=== PATIENT | male | born 1955 | race African-American/Black ===

== ENCOUNTER 2016-08-24 14:44 | Outpatient (RCR) | payer MEDICARE, OTHER ==
[~2016-08-24 14:44] MED LIST: AMLODIPINE BESY10 MG ORAL; ASPIRIN81 MG ORAL; CATAPRES-TTS 11 EACH TD; CATAPRES-TTS 31 EACH TD; FUROSEMIDE20 M1 ORAL; HYDRALAZINE HCL10 MG ORAL; LOSARTAN POTASS50 MG ORAL; MINOXIDIL10 MG PO; NOVOLIN N100 UNIT/1 SUBQ; REGLAN10 MG PO; UNOBMED
== END 2016-09-22 | disposition home or self-care (01) ==
LOC: WCC 14:44
DX: L03.115 Cellulitis of right lower limb (principal); E11.621 Type 2 diabetes mellitus with foot ulcer; M25.774 Osteophyte, right foot; Z89.431 Acquired absence of right foot; L97.514 Non-pressure chronic ulcer of other part of right foot with necrosis of bone; E11.42 Type 2 diabetes mellitus with diabetic polyneuropathy; G99.0 Autonomic neuropathy in diseases classified elsewhere; Z89.421 Acquired absence of other right toe(s); I12.0 Hypertensive chronic kidney disease with stage 5 chronic kidney disease or end stage renal disease; E11.22 Type 2 diabetes mellitus with diabetic chronic kidney disease; N18.6 End stage renal disease
CPT/HCPCS: G0463

== ENCOUNTER 2016-09-28 14:30 | Outpatient (RCR) | payer MEDICARE, OTHER | END 2016-10-22 | disposition home or self-care (01) | LOC: WCC 14:30 | DX: L03.115 Cellulitis of right lower limb (principal); E11.621 Type 2 diabetes mellitus with foot ulcer; M25.774 Osteophyte, right foot; Z89.431 Acquired absence of right foot; L97.514 Non-pressure chronic ulcer of other part of right foot with necrosis of bone; E11.42 Type 2 diabetes mellitus with diabetic polyneuropathy; G99.0 Autonomic neuropathy in diseases classified elsewhere; R11.2 Nausea with vomiting, unspecified; I12.0 Hypertensive chronic kidney disease with stage 5 chronic kidney disease or end stage renal disease; E11.22 Type 2 diabetes mellitus with diabetic chronic kidney disease; N18.6 End stage renal disease | CPT/HCPCS: G0463 ==

== ENCOUNTER 2016-11-16 15:00 | Outpatient (RCR) | payer MEDICARE, OTHER | END 2016-11-22 | disposition home or self-care (01) | LOC: WCC 15:00 | DX: L97.514 Non-pressure chronic ulcer of other part of right foot with necrosis of bone (principal); E11.42 Type 2 diabetes mellitus with diabetic polyneuropathy; G99.0 Autonomic neuropathy in diseases classified elsewhere; Z89.431 Acquired absence of right foot; M25.774 Osteophyte, right foot; E11.621 Type 2 diabetes mellitus with foot ulcer; I12.0 Hypertensive chronic kidney disease with stage 5 chronic kidney disease or end stage renal disease; E11.22 Type 2 diabetes mellitus with diabetic chronic kidney disease; N18.6 End stage renal disease; E11.40 Type 2 diabetes mellitus with diabetic neuropathy, unspecified; Z87.891 Personal history of nicotine dependence; Z89.421 Acquired absence of other right toe(s) | CPT/HCPCS: G0463 ==

== ENCOUNTER 2016-11-23 15:00 | Outpatient (RCR) | payer MEDICARE, OTHER | END 2016-12-23 | disposition home or self-care (01) | LOC: WCC 15:00 | DX: L97.514 Non-pressure chronic ulcer of other part of right foot with necrosis of bone (principal); E11.621 Type 2 diabetes mellitus with foot ulcer; Z89.431 Acquired absence of right foot; E11.42 Type 2 diabetes mellitus with diabetic polyneuropathy; G99.0 Autonomic neuropathy in diseases classified elsewhere; I12.0 Hypertensive chronic kidney disease with stage 5 chronic kidney disease or end stage renal disease; E11.22 Type 2 diabetes mellitus with diabetic chronic kidney disease; N18.6 End stage renal disease; E11.40 Type 2 diabetes mellitus with diabetic neuropathy, unspecified | CPT/HCPCS: G0463 ×2 ==

== ENCOUNTER 2016-12-07 16:15 | Outpatient (CLI) | payer MEDICARE, OTHER ==
--- NOTE | 2016-12-07 17:31 | Diagnostic Imaging Report ---
Indication: PAIN Technique: 3 views left foot Comparison: none Findings: No acute fractures. No dislocations. The joint spaces are preserved. There is hammertoe deformity of the second through fifth digits. This somewhat limits evaluation Impression: No acute bony trauma
== END 2016-12-07 18:15 | disposition home or self-care (01) ==
LOC: WCC 16:15
DX: M25.572 Pain in left ankle and joints of left foot (principal); M20.42 Other hammer toe(s) (acquired), left foot

== ENCOUNTER 2018-01-31 14:27 | Outpatient (RCR) | payer MEDICARE, OTHER | END 2018-02-22 | disposition home or self-care (01) | LOC: WCC 14:27 | DX: L97.512 Non-pressure chronic ulcer of other part of right foot with fat layer exposed (principal); E11.42 Type 2 diabetes mellitus with diabetic polyneuropathy; E11.621 Type 2 diabetes mellitus with foot ulcer; G99.0 Autonomic neuropathy in diseases classified elsewhere; Z89.421 Acquired absence of other right toe(s); I12.0 Hypertensive chronic kidney disease with stage 5 chronic kidney disease or end stage renal disease; E11.22 Type 2 diabetes mellitus with diabetic chronic kidney disease; N18.6 End stage renal disease; Z87.891 Personal history of nicotine dependence | CPT/HCPCS: 11042 ==

== ENCOUNTER 2018-05-02 14:27 | Outpatient (RCR) | payer MEDICARE, OTHER | END 2018-05-25 | disposition home or self-care (01) | LOC: WCC 14:27 | DX: L97.513 Non-pressure chronic ulcer of other part of right foot with necrosis of muscle (principal); L97.512 Non-pressure chronic ulcer of other part of right foot with fat layer exposed; G99.0 Autonomic neuropathy in diseases classified elsewhere; N18.6 End stage renal disease; Z89.421 Acquired absence of other right toe(s); E11.621 Type 2 diabetes mellitus with foot ulcer; E11.49 Type 2 diabetes mellitus with other diabetic neurological complication; I12.0 Hypertensive chronic kidney disease with stage 5 chronic kidney disease or end stage renal disease; E11.22 Type 2 diabetes mellitus with diabetic chronic kidney disease; Z87.891 Personal history of nicotine dependence; Z89.431 Acquired absence of right foot | CPT/HCPCS: 11042; 11043; 15275; 73721; 87070; 87205; Q4132; Q4133 ==

== ENCOUNTER 2018-05-02 15:41 | Outpatient (CLI) | payer MEDICARE, OTHER ==
--- NOTE | 2018-05-03 10:27 | Diagnostic Imaging Report ---
Indication: Right foot wounds, laterally and on the sole, history of amputation Technique: Sagittal, axial, and coronal T1 fast spin echo and FSE STIR images obtained of the hindfoot Comparison: none Findings: Marker alvares an ulcer on the plantar surface of the midfoot and a second marker on the lateral aspect of the midfoot. Patient is status post transmetatarsal amputation. The anatomy of the metatarsal stumps is difficult to assess. There is equivocally Increased STIR and decreased T1 signal within the fifth metatarsal stump. There is equivocally increased STIR and decreased T1 signal within the third and/or fourth metatarsal stumps. There is increased STIR signal decreased T1 signal and suggestion of slight cortical loss involving the inferolateral aspect of the cuboid. This is best appreciated on the coronal images. This is adjacent to a wound marker as well as some soft tissue edema. No other marrow signal abnormality demonstrated. There is a minimal amount of edema in the plantar surface of the distal foot adjacent to the marker. No focal drainable soft tissue collections are demonstrated. Impression: Abnormal STIR and T1 signal within the cuboid bone inferolaterally, adjacent to a marker delineating a soft tissue ulcer. This is concerning for acute osteomyelitis Questionable abnormal STIR and T1 signal in the fifth, possibly third and or fourth fifth metatarsal stumps in patient is status post transmetatarsal indication. This raises concern for osteomyelitis. However, the anatomy in this area is difficult to delineate so findings are equivocal. This does appear to be adjacent to a soft tissue ulcer No drainable fluid collection demonstrated
== END 2018-05-02 17:41 | disposition home or self-care (01) ==
LOC: RAD 15:41
DX: M86.8X7 Other osteomyelitis, ankle and foot (principal)

== ENCOUNTER 2018-05-30 14:17 | Outpatient (RCR) | payer MEDICARE, OTHER | END 2018-06-22 | disposition home or self-care (01) | LOC: WCC 14:17 | DX: L97.513 Non-pressure chronic ulcer of other part of right foot with necrosis of muscle (principal); L97.512 Non-pressure chronic ulcer of other part of right foot with fat layer exposed; G99.0 Autonomic neuropathy in diseases classified elsewhere; N18.6 End stage renal disease; Z89.421 Acquired absence of other right toe(s); E11.621 Type 2 diabetes mellitus with foot ulcer; E11.49 Type 2 diabetes mellitus with other diabetic neurological complication; Z87.891 Personal history of nicotine dependence; Z89.431 Acquired absence of right foot; I12.0 Hypertensive chronic kidney disease with stage 5 chronic kidney disease or end stage renal disease; E11.22 Type 2 diabetes mellitus with diabetic chronic kidney disease; E11.40 Type 2 diabetes mellitus with diabetic neuropathy, unspecified | CPT/HCPCS: 11043; 82962; G0463 ==

== ENCOUNTER 2018-10-03 13:56 | Outpatient (RCR) | payer MEDICARE, OTHER | END 2018-10-22 | disposition home or self-care (01) | LOC: WCC 13:56 | DX: E11.621 Type 2 diabetes mellitus with foot ulcer (principal); E11.49 Type 2 diabetes mellitus with other diabetic neurological complication; Z89.421 Acquired absence of other right toe(s); G99.0 Autonomic neuropathy in diseases classified elsewhere; I12.0 Hypertensive chronic kidney disease with stage 5 chronic kidney disease or end stage renal disease; E11.22 Type 2 diabetes mellitus with diabetic chronic kidney disease; N18.6 End stage renal disease; Z79.899 Other long term (current) drug therapy; L97.513 Non-pressure chronic ulcer of other part of right foot with necrosis of muscle; L97.512 Non-pressure chronic ulcer of other part of right foot with fat layer exposed | CPT/HCPCS: 11043; 87070; 87181; 87205 ==

== ENCOUNTER 2018-10-24 13:53 | Outpatient (RCR) | payer MEDICARE, OTHER | END 2018-11-22 | disposition home or self-care (01) | LOC: WCC 13:53 | DX: E11.621 Type 2 diabetes mellitus with foot ulcer (principal); E11.49 Type 2 diabetes mellitus with other diabetic neurological complication; N18.6 End stage renal disease; Z89.421 Acquired absence of other right toe(s); G99.0 Autonomic neuropathy in diseases classified elsewhere; L97.512 Non-pressure chronic ulcer of other part of right foot with fat layer exposed; L97.513 Non-pressure chronic ulcer of other part of right foot with necrosis of muscle; E11.40 Type 2 diabetes mellitus with diabetic neuropathy, unspecified; I12.0 Hypertensive chronic kidney disease with stage 5 chronic kidney disease or end stage renal disease; E11.22 Type 2 diabetes mellitus with diabetic chronic kidney disease; Z79.899 Other long term (current) drug therapy | CPT/HCPCS: 11043 ==

== ENCOUNTER 2018-11-28 14:17 | Outpatient (RCR) | payer MEDICARE, OTHER | END 2018-12-23 | disposition home or self-care (01) | LOC: WCC 14:17 | DX: E11.621 Type 2 diabetes mellitus with foot ulcer (principal); E11.49 Type 2 diabetes mellitus with other diabetic neurological complication; N18.6 End stage renal disease; Z89.421 Acquired absence of other right toe(s); G99.0 Autonomic neuropathy in diseases classified elsewhere; L97.512 Non-pressure chronic ulcer of other part of right foot with fat layer exposed; L97.513 Non-pressure chronic ulcer of other part of right foot with necrosis of muscle; E11.22 Type 2 diabetes mellitus with diabetic chronic kidney disease; I12.0 Hypertensive chronic kidney disease with stage 5 chronic kidney disease or end stage renal disease; E11.40 Type 2 diabetes mellitus with diabetic neuropathy, unspecified; Z79.899 Other long term (current) drug therapy | CPT/HCPCS: 11042; 11043; G0463 ==

== ENCOUNTER → 2018-11-28 | Outpatient (CLI) | payer MEDICARE, OTHER | END | disposition home or self-care (01) | LOC: LAB 14:48 | DX: B99.9 Unspecified infectious disease (principal) | CPT/HCPCS: 36415; 86140 ==

== ENCOUNTER 2019-01-02 14:10 | Outpatient (RCR) | payer MEDICARE, OTHER ==
[~2019-01-02] VITALS: Ht 30.5 cm; Wt 0.5 kg
== END 2019-01-22 | disposition home or self-care (01) ==
LOC: WCC 14:10
DX: E11.621 Type 2 diabetes mellitus with foot ulcer (principal); M86.9 Osteomyelitis, unspecified; E11.22 Type 2 diabetes mellitus with diabetic chronic kidney disease; I12.0 Hypertensive chronic kidney disease with stage 5 chronic kidney disease or end stage renal disease; N18.6 End stage renal disease; E11.40 Type 2 diabetes mellitus with diabetic neuropathy, unspecified; Z87.891 Personal history of nicotine dependence; L97.512 Non-pressure chronic ulcer of other part of right foot with fat layer exposed; L97.513 Non-pressure chronic ulcer of other part of right foot with necrosis of muscle; Z89.421 Acquired absence of other right toe(s)
CPT/HCPCS: 11042; 11043; 87070; 87181; 87205

== ENCOUNTER 2019-01-02 15:20 | Outpatient (CLI) | payer MEDICARE, OTHER ==
--- NOTE | 2019-01-02 16:49 | Diagnostic Imaging Report ---
Indication: Unresolved ulcers on lateral portion of foot as well as on plantar surface of foot Technique: Sagittal axial and coronal T1 FSE and FSE STIR images of the right hindfoot Comparison: 05/02/2018 Findings: There is edema and evidence of an ulcer involving the plantar lateral surface of the foot. Ulcer is marked by a marker. A few areas of signal void within the superficial soft tissues laterally likely indicate gas bubbles. No drainable fluid collection is demonstrated Abnormal high STIR and low T1 signal now involves the entire cuboid. Patient is status post transmetatarsal amputation. The stump anatomy is difficult to delineate. There is likely at least partial fusion of the third, fourth, and fifth metatarsal stumps and the second may also be fused to the third. There is abnormal STIR and T1 signal within at least the third fourth and fifth metatarsal stumps there may be abnormal signal within the second metatarsal stump and this is considered less likely. The first metatarsal stump demonstrates no marrow signal abnormality. The cuneiforms, navicular, talus, and calcaneus all demonstrate normal marrow signal. The large tendons are grossly intact. Impression: Markedly diffusely abnormal signal within the cuboid, consistent with osteomyelitis. This is progressed markedly since prior study of 05/02/2018 Status post transmetatarsal agitation. The metatarsal stump anatomy is difficult to assess. Suspect, however, osteomyelitis of the fifth, fourth, possibly third, much less likely second metatarsal stumps Evidence of soft tissue ulceration and edema as described, consistent with stated history of ulcer and cellulitis. No definite drainable collection to suggest abscess demonstrated. Findings discussed by phone with Dr. Elizabeth at the time of interpretation
== END 2019-01-02 17:20 | disposition home or self-care (01) ==
LOC: RAD 15:20
DX: M86.9 Osteomyelitis, unspecified (principal)

== ENCOUNTER 2019-06-05 13:50 | Outpatient (RCR) | payer MEDICARE, OTHER | END 2019-06-23 | disposition home or self-care (01) | LOC: WCC 13:50 | DX: L97.513 Non-pressure chronic ulcer of other part of right foot with necrosis of muscle (principal); G99.0 Autonomic neuropathy in diseases classified elsewhere; Z89.421 Acquired absence of other right toe(s); N18.6 End stage renal disease; E11.621 Type 2 diabetes mellitus with foot ulcer; E11.49 Type 2 diabetes mellitus with other diabetic neurological complication; I12.0 Hypertensive chronic kidney disease with stage 5 chronic kidney disease or end stage renal disease; E11.22 Type 2 diabetes mellitus with diabetic chronic kidney disease | CPT/HCPCS: 11043 ==

== ENCOUNTER 2019-06-26 13:49 | Outpatient (RCR) | payer MEDICARE, OTHER | END 2019-07-24 | disposition home or self-care (01) | LOC: WCC 13:49 | DX: L97.513 Non-pressure chronic ulcer of other part of right foot with necrosis of muscle (principal); E11.49 Type 2 diabetes mellitus with other diabetic neurological complication; E11.621 Type 2 diabetes mellitus with foot ulcer; N18.6 End stage renal disease; E11.22 Type 2 diabetes mellitus with diabetic chronic kidney disease; I12.0 Hypertensive chronic kidney disease with stage 5 chronic kidney disease or end stage renal disease; E11.40 Type 2 diabetes mellitus with diabetic neuropathy, unspecified | CPT/HCPCS: 11043; 87070; 87181; 87205 ==

== ENCOUNTER → 2019-10-23 | Outpatient (RCR) | payer MEDICARE, OTHER | END | disposition home or self-care (01) | LOC: WCC 14:08 | DX: L97.512 Non-pressure chronic ulcer of other part of right foot with fat layer exposed (principal); E11.49 Type 2 diabetes mellitus with other diabetic neurological complication; E11.621 Type 2 diabetes mellitus with foot ulcer; N18.6 End stage renal disease; Z89.421 Acquired absence of other right toe(s); L02.611 Cutaneous abscess of right foot; E11.22 Type 2 diabetes mellitus with diabetic chronic kidney disease; I12.0 Hypertensive chronic kidney disease with stage 5 chronic kidney disease or end stage renal disease; E11.40 Type 2 diabetes mellitus with diabetic neuropathy, unspecified | CPT/HCPCS: 10060; 11042 ==

== ENCOUNTER 2019-10-30 13:51 | Outpatient (RCR) | payer MEDICARE, OTHER | END 2019-11-23 | disposition home or self-care (01) | LOC: WCC 13:51 | DX: L97.512 Non-pressure chronic ulcer of other part of right foot with fat layer exposed (principal); E11.49 Type 2 diabetes mellitus with other diabetic neurological complication; E11.621 Type 2 diabetes mellitus with foot ulcer; N18.6 End stage renal disease; Z89.421 Acquired absence of other right toe(s); L02.611 Cutaneous abscess of right foot; I12.0 Hypertensive chronic kidney disease with stage 5 chronic kidney disease or end stage renal disease; E11.22 Type 2 diabetes mellitus with diabetic chronic kidney disease; E11.40 Type 2 diabetes mellitus with diabetic neuropathy, unspecified | CPT/HCPCS: 11042; G0463 ==

== ENCOUNTER 2019-11-27 13:46 | Outpatient (RCR) | payer MEDICARE, OTHER | END 2019-12-24 | disposition home or self-care (01) | LOC: WCC 13:46 | DX: L97.512 Non-pressure chronic ulcer of other part of right foot with fat layer exposed (principal); E11.49 Type 2 diabetes mellitus with other diabetic neurological complication; E11.621 Type 2 diabetes mellitus with foot ulcer; N18.6 End stage renal disease; Z89.421 Acquired absence of other right toe(s); L02.611 Cutaneous abscess of right foot; I12.0 Hypertensive chronic kidney disease with stage 5 chronic kidney disease or end stage renal disease; E11.22 Type 2 diabetes mellitus with diabetic chronic kidney disease | CPT/HCPCS: 11042; 11055; 87070; 87181; 87205; C5275; G0463; Q4124 ==

== ENCOUNTER 2019-12-25 11:10 | Outpatient (RCR) | payer MEDICARE, OTHER | END 2020-01-23 | disposition home or self-care (01) | LOC: WCC 11:10 | DX: L97.512 Non-pressure chronic ulcer of other part of right foot with fat layer exposed (principal); E11.49 Type 2 diabetes mellitus with other diabetic neurological complication; E11.621 Type 2 diabetes mellitus with foot ulcer; N18.6 End stage renal disease; Z89.421 Acquired absence of other right toe(s); I12.0 Hypertensive chronic kidney disease with stage 5 chronic kidney disease or end stage renal disease; E11.22 Type 2 diabetes mellitus with diabetic chronic kidney disease | CPT/HCPCS: 11042; 15275; 87070; 87205; G0463; Q4103 ==

== ENCOUNTER 2020-01-29 13:40 | Outpatient (RCR) | payer MEDICARE, OTHER | END 2020-02-23 | disposition home or self-care (01) | LOC: WCC 13:40 | DX: L97.512 Non-pressure chronic ulcer of other part of right foot with fat layer exposed (principal); E11.49 Type 2 diabetes mellitus with other diabetic neurological complication; E11.621 Type 2 diabetes mellitus with foot ulcer; N18.6 End stage renal disease; Z89.421 Acquired absence of other right toe(s); Z87.891 Personal history of nicotine dependence; Z89.431 Acquired absence of right foot; I12.0 Hypertensive chronic kidney disease with stage 5 chronic kidney disease or end stage renal disease; E11.22 Type 2 diabetes mellitus with diabetic chronic kidney disease; E11.40 Type 2 diabetes mellitus with diabetic neuropathy, unspecified | CPT/HCPCS: 11043; G0463 ==

== ENCOUNTER → 2020-01-29 | Outpatient (CLI) | payer MEDICARE, OTHER ==
--- NOTE | 2020-01-29 17:37 | Diagnostic Imaging Report ---
Indication: Nonhealing wound in the outer right foot. Suspected osteomyelitis Technique: Sagittal, axial, and coronal T1 FSE and FSE STIR images of the right hindfoot Comparison: 10/23/2019 Findings: The patient is status post transmetatarsal amputation. Delineation of the anatomy, as previously, somewhat difficult due to coalition of multiple forefoot bones. A marker alvares the area of ulceration in the inferolateral forefoot. There is extensive edema of the plantar surface of the forefoot, particularly anterior to the marker. On the sagittal images, there are questionably some gas bubbles within the edematous soft tissues. There is also evidence of skin breakdown in this area. No discrete organized fluid collections are demonstrated. There is evidence of destructive change involving the inferolateral aspect of the cuboid. There is considerable marrow edema centrally within the cuboid. No other marrow signal abnormalities are demonstrated. When compared to the prior study, the soft tissue changes are somewhat less extensive, with less edema than was evident previously. There is also evidence of slight decrease in the extent of marrow edema when compared to the previous study. The extent of destructive change of the cuboid appears similar. Impression: Inferolateral right foot soft tissue ulcer with underlying edema probably reflective of cellulitis. A few gas bubbles are questionable present, could indicate infection with a gas-forming organism versus deep penetration of the ulceration. Marrow edema within the cuboid, presumably indicative of ongoing osteomyelitis. Note that this appears less severe than on the previous study. Previously reported metatarsal signal changes have resolved No evidence of soft tissue abscess
== END | disposition home or self-care (01) ==
LOC: MRI 15:27
DX: S91.351A Open bite, right foot, initial encounter (principal); X58.XXXA Exposure to other specified factors, initial encounter; Y92.9 Unspecified place or not applicable; R60.0 Localized edema; R52 Pain, unspecified

== ENCOUNTER 2020-03-25 14:09 | Outpatient (RCR) | payer MEDICARE, OTHER | END 2020-04-24 | disposition home or self-care (01) | LOC: WCC 14:09 | DX: L97.512 Non-pressure chronic ulcer of other part of right foot with fat layer exposed (principal); E11.49 Type 2 diabetes mellitus with other diabetic neurological complication; E11.621 Type 2 diabetes mellitus with foot ulcer; Z89.421 Acquired absence of other right toe(s); E11.22 Type 2 diabetes mellitus with diabetic chronic kidney disease; I12.0 Hypertensive chronic kidney disease with stage 5 chronic kidney disease or end stage renal disease; N18.6 End stage renal disease; E11.40 Type 2 diabetes mellitus with diabetic neuropathy, unspecified | CPT/HCPCS: 11043 ==

== ENCOUNTER 2020-06-03 14:05 | Outpatient (RCR) | payer MEDICARE, OTHER | END 2020-06-22 | disposition home or self-care (01) | LOC: WCC 14:05 | DX: E11.621 Type 2 diabetes mellitus with foot ulcer (principal); L98.498 Non-pressure chronic ulcer of skin of other sites with other specified severity; Z88.8 Allergy status to other drugs, medicaments and biological substances | CPT/HCPCS: 11043; 87070; 87181; 87205; G0463 ==